=== PATIENT | female | born 1955 | race African-American/Black ===

== ENCOUNTER 2017-06-05 05:10 | Emergency (ER) | payer OTHER ==
[~2017-06-05] VITALS: Ht 172.7 cm; Wt 75.0 kg
[~2017-06-05 05:10] MED LIST: LOSA100T PO; TRAM50 PO
[2017-06-05 05:13] VITALS: BP 161/77; PULSE 73; RESP 18; TEMP 98.5; O2SAT 99
--- NOTE | 2017-06-05 05:33 | PD ---
HPI Chief Complaint: Back/ Neck Pain or Injury Time Seen by Provider: 05:15 Travel History International Travel<30 days: No Contact w/Intl Traveler<30days: No Traveled to known affect area: No History of Present Illness HPI Patient is a 61-year-old female presenting to the emergency department for evaluation of low back pain. Patient states she fell before , she is unsure what part of her body she fell onto. She reported that she tripped and fell. She states that her pain exacerbated on Monday, there was no new injury or trauma. She states that her symptoms progressively got worse over the weekend. She reports that she was laying in bed and then stated that when she woke up this morning her pain was worse which prompted her visit to the emergency department. She states that she has been taking 800 mg of ibuprofen every 8 hours since she fell. Patient has not contacted her primary doctor over the last 3 months. She reports making an appointment with a braider operator thinking that she has rheumatoid arthritis. Patient denies any bladder or bowel incontinence, no saddle paresthesia, no weakness in extremities. Pain is exacerbated with position changes and after rest. PFSH Past Medical History Heart Rhythm Problems: Yes (mvp) Diabetes: Yes Patient Takes Glucophage: No Hypertension: Yes : 2 Para: 2 Past Surgical History Hysterectomy: Yes Other Surgery: Yes (gastric bypass ) Social History Alcohol Use: Yes (2 glasses wine daily) Tobacco Use: No Substance Use: No Allergies-Medications (Allergen,Severity, Reaction): Coded Allergies: No Known Allergies (Unverified Adverse Reaction, Unknown, 06/05/17) Reported Meds & Prescriptions Reported Meds & Active Scripts Active Review of Systems Except as stated in HPI: all other systems reviewed are Neg Musculoskeletal: Positive: Myalgias, Cramping Physical Exam Narrative GENERAL: Well-developed, well-nourished, alert -[place] Citizen female. Presenting in no acute distress. SKIN: Warm and dry. HEAD: Normocephalic. EYES: No scleral icterus. No injection or drainage. NECK: Supple, trachea midline. No JVD or lymphadenopathy. CARDIOVASCULAR: Regular rate and rhythm without murmurs, gallops, or rubs. RESPIRATORY: Breath sounds equal bilaterally. No accessory muscle use. GASTROINTESTINAL: Abdomen soft, non-tender, nondistended. MUSCULOSKELETAL: No cyanosis, or edema. No spinal tenderness or step-off noted. No tenderness to palpation paraspinal musculature. 5 out of 5 muscle strength. BACK: Nontender without obvious deformity. No CVA tenderness. Data Data Last Documented VS Vital Signs Date Time Temp Pulse Resp B/P (MAP) Pulse Ox O2 Delivery O2 Flow Rate FiO2 06/05/17 05:13 98.5 73 18 161/77 (105) 99 Room Air MDM Medical Decision Making Medical Screen Exam Complete: Yes Emergency Medical Condition: No Interpretation(s) Vital Signs Date Time Temp Pulse Resp B/P (MAP) Pulse Ox O2 Delivery O2 Flow Rate FiO2 06/05/17 05:13 98.5 73 18 161/77 (105) 99 Room Air Differential Diagnosis Lumbar strain versus lumbar spasms versus discogenic pain versus other Narrative Course Patient is a 61-year-old female presenting with 3 months of back pain. Patient has no focal deficits noted on exam. She is ambulatory in the emergency department. Patient's vital signs are stable. Patient was encouraged to apply warm heat to the affected area, continue taking ibuprofen or Tylenol as needed and as directed. She is encouraged to follow-up with her primary doctor. A medical screening exam was performed: At the time of evaluation the presenting medical condition was determined not to be of an emergent nature. The patient was given the option of receiving additional care, but declined. Patient was given options for additional community resources from which to obtain care. The Patient Has Been advised to seek medical attention for their presenting complaint. The patient has been advised to return to the ER at any time if an emergent condition develops. Diagnosis Primary Impression: Encounter for medical screening examination Condition: Stable Pamela Rios Jun 05, 2017 05:33
== END 2017-06-05 06:00 | disposition left against medical advice (07) ==
LOC: NEPD 05:10
DX: M54.5 Low back pain (principal)
CPT/HCPCS: 99281